=== PATIENT | male | born 1955 | race Caucasian/White ===

== ENCOUNTER 2016-12-02 06:38 | Emergency (ER) | payer OTHER ==
[~2016-12-02] VITALS: Ht 172.7 cm; Wt 77.0 kg
[2016-12-02] MEDS ORDERED: ACETAMINOPHEN WITH CODEINE 300/30MG TABLET PO ONE (07:45)
[2016-12-02 09:08] VITALS: BP 122/74
== END 2016-12-02 09:13 | disposition home or self-care (01) ==
LOC: ER 08:21
PROC: 2Y41X5Z Packing of Nasal Region using Packing Material (ICD-10-PCS; principal; 2016-12-02)
DX: R04.0 Epistaxis (principal); F31.9 Bipolar disorder, unspecified; F17.210 Nicotine dependence, cigarettes, uncomplicated
CPT/HCPCS: 30901; 99284

== ENCOUNTER 2024-08-29 13:14 | Inpatient (IN) | payer MEDICARE, OTHER ==
[~2024-08-29] VITALS: Ht 170.2 cm; Wt 53.5 kg
[~2024-08-29 13:14] MED LIST: FERR-63 PO; IBUP-2029 PO; INSLIS SUBCUT; LANTUSUD SUBCUT; PANT40SU PO
[2024-08-29] MEDS: MORPHINE SULFATE 2 MG/ML INJ (NOT FOR IM USE) IV ONE ×2 (13:48→15:01)
[2024-08-29 14:06] LABS: HEMATOCRIT 27.2 % (42.0-52.0); HEMOGLOBIN 9.1 g/dL (14.0-18.0); MEAN CORPUSCULAR HEMOGLOBIN 26.3 pg (28.0-32.0); MEAN CORPUSCULAR HGB CONC 33.5 g/dL (31.0-37.0); MEAN CORPUSCULAR VOLUME 78.5 fL (80.0-94.0); PLATELET 84 x1000/uL (130-400); RED BLOOD CELL COUNT 3.47 mill/uL (4.7-6.1); RED CELL DISTRIBUTION WIDTH 17.7 % (11.6-14.6); WHITE BLOOD COUNT 4.8 x1000/uL (4.5-11.0)
[2024-08-29 14:13] LABS: CHLORIDE 98 mEq/L (98-107); POTASSIUM 4.2 mEq/L (3.5-5.1)
[2024-08-29 14:14] LABS: CARBON DIOXIDE 25 mEq/L (21-32); SODIUM 132 mEq/L (136-145)
[2024-08-29 14:15] LABS: CALCIUM 8.9 mg/dL (8.7-10.4)
[2024-08-29 14:19] LABS: CREATININE 1.1 mg/dL (0.6-1.3)
[2024-08-29 14:20] LABS: UREA NITROGEN BLOOD 22 mg/dL (9-23)
[2024-08-29 14:23] LABS: INR 1.2; PARTIAL THROMBOPLASTIN TIME 30.5 sec (23.4-31.0); PROTHROMBIN TIME 13.1 sec (9.6-11.0)
[2024-08-29 14:33] LABS: GLUCOSE 327 mg/dL (70-105)
[2024-08-29] MEDS: INSULIN LISPRO 100 UNITS/ML SUBCUT NR (16:00)
[2024-08-29 18:13] VITALS: BP 129/73; PULSE 89; RESP 19; O2SAT 100
[2024-08-29] MEDS ORDERED: CLONIDINE 0.1MG TABLET PO PRN (18:15)
[2024-08-29] MEDS ORDERED: ONDANSETRON HCL 4MG/2ML INJ IV PRN (18:15)
[2024-08-29] MEDS ORDERED: ACETAMINOPHEN 325MG TABLET PO PRN (18:15)
[2024-08-29] MEDS ORDERED: DEXTROSE 50% WATER 50ML SYRINGE IV PRN (18:15)
[2024-08-29] MEDS ORDERED: DOCUSATE SODIUM 100MG CAPSULE PO PRN (18:15)
[2024-08-29] MEDS ORDERED: IPRATROPIUM/ALBUTEROL 0.5-3(2.5)MG/3ML NEB HHN PRN (18:33)
[2024-08-29 20:00] VITALS: BP 124/68; PULSE 91; RESP 19; TEMP 36.5; O2SAT 98
[2024-08-29] MEDS: BLOOD SUGAR DIAGNOSTIC STRIP TEST SCH (21:00)
[2024-08-29] MEDS: INSULIN LISPRO 100 UNITS/ML SUBCUT SCH (21:00)
[2024-08-30] VITALS: BP 119/68; PULSE 85; RESP 19; TEMP 36.5; O2SAT 98
[2024-08-30 04:00] VITALS: BP 120/68; PULSE 86; RESP 18; TEMP 36.7; O2SAT 96
[2024-08-30 07:18] LABS: BASOPHILS % 0.3 % (0.0-2.0); DIFFERENTIAL COMMENT 0; EOSINOPHILS % 0.2 % (0.0-5.0); HEMATOCRIT. 25.1 % (42.0-52.0); HEMOGLOBIN. 8.5 g/dL (14.0-18.0); MEAN CORPUSCULAR HEMOGLOBIN 26.5 pg (28.0-32.0); MEAN CORPUSCULAR VOLUME 77.8 fL (80.0-94.0); MEAN PLATELET VOLUME 6.6 fl (7.4-10.4); MONOCYTES % 10.2 % (2.0-8.0); NEUTROPHILS % 80.3 % (40.0-76.0); PLATELET 107 x1000/uL (130-400); RED BLOOD CELL COUNT 3.23 mill/uL (4.7-6.1); RED CELL DISTRIBUTION WIDTH 17.8 % (11.6-14.6); WHITE BLOOD COUNT 5.7 x1000/uL (4.5-11.0)
[2024-08-30 07:22] LABS: CHLORIDE 101 mEq/L (98-107); POTASSIUM 4.2 mEq/L (3.5-5.1); SODIUM 136 mEq/L (136-145)
[2024-08-30 07:23] LABS: CALCIUM 9.1 mg/dL (8.7-10.4); CARBON DIOXIDE 27 mEq/L (21-32)
[2024-08-30 07:28] LABS: CREATININE 0.9 mg/dL (0.6-1.3); GLUCOSE 235 mg/dL (70-105); UREA NITROGEN BLOOD 20 mg/dL (9-23)
[2024-08-30 07:30] LABS: ALANINE AMINOTRANSFERASE 29 IU/L (10-49); ALBUMIN 3.5 g/dL (3.2-4.8); ASPARTATE AMINOTRANSFERASE 28 IU/L (<34); BILIRUBIN TOTAL 1.5 mg/dL (0.1-1.0); PROTEIN TOTAL 7.1 g/dL (6.0-8.3)
[2024-08-30 08:00] VITALS: BP 115/63; PULSE 84; RESP 18; TEMP 36.3; O2SAT 97
[2024-08-30] MEDS: HYDROCODONE/ACETAMINOPHEN 10/325MG TABLET PO PRN (08:16)
[2024-08-30] MEDS: ENOXAPARIN 40MG/0.4ML SYR SUBCUT SCH (09:00)
[2024-08-30] MEDS: HYDROCODONE/ACETAMINOPHEN 5/325MG TABLET PO PRN (10:08)
[2024-08-30 12:00] VITALS: BP 110/63; PULSE 80; RESP 19; TEMP 36.3; O2SAT 97
[2024-08-30] MEDS: INSULIN LISPRO 100 UNITS/ML SUBCUT SCH (12:20)
[2024-08-30] MEDS: PANTOPRAZOLE 40MG DR TABLET PO SCH (12:27)
[2024-08-30 16:00] VITALS: BP 109/52; PULSE 79; RESP 18; TEMP 36.5; O2SAT 97
[2024-08-30] MEDS: MORPHINE SULFATE 2 MG/ML INJ (NOT FOR IM USE) IV PRN (16:11)
[2024-08-30 20:00] VITALS: BP 111/64; PULSE 88; RESP 18; TEMP 36.4; O2SAT 95
[2024-08-31] VITALS (15 sets, daily range): BP systolic 91–128; BP diastolic 44–71; PULSE 74–82; RESP 14–20; TEMP 36.114–36.89184; O2SAT 96–98
[2024-08-31] MEDS: INSULIN GLARGINE 100 UNITS/ML SUBCUT SCH (09:41)
[2024-08-31 11:56] LABS: BASOPHILS % 0.3 % (0.0-2.0); DIFFERENTIAL COMMENT 0; EOSINOPHILS % 0.5 % (0.0-5.0); HEMATOCRIT. 22.3 % (42.0-52.0); HEMOGLOBIN. 7.4 g/dL (14.0-18.0); LYMPHOCYTES % 9.7 % (20.0-50.0); MEAN CORPUSCULAR HEMOGLOBIN 26.2 pg (28.0-32.0); MEAN CORPUSCULAR VOLUME 79.3 fL (80.0-94.0); MEAN PLATELET VOLUME 6.6 fl (7.4-10.4); MONOCYTES % 12.3 % (2.0-8.0); NEUTROPHILS % 77.2 % (40.0-76.0); PLATELET 73 x1000/uL (130-400); RED BLOOD CELL COUNT 2.81 mill/uL (4.7-6.1); RED CELL DISTRIBUTION WIDTH 18.3 % (11.6-14.6); WHITE BLOOD COUNT 4.6 x1000/uL (4.5-11.0)
[2024-08-31 12:08] LABS: CALCIUM 8.2 mg/dL (8.7-10.4); CARBON DIOXIDE 27 mEq/L (21-32); CHLORIDE 99 mEq/L (98-107); POTASSIUM 4.3 mEq/L (3.5-5.1); SODIUM 132 mEq/L (136-145)
[2024-08-31 12:14] LABS: ALANINE AMINOTRANSFERASE 21 IU/L (10-49); CREATININE 0.9 mg/dL (0.6-1.3); GLUCOSE 241 mg/dL (70-105); UREA NITROGEN BLOOD 18 mg/dL (9-23)
[2024-08-31 12:15] LABS: ALBUMIN 3.2 g/dL (3.2-4.8); ASPARTATE AMINOTRANSFERASE 23 IU/L (<34)
[2024-08-31 12:16] LABS: BILIRUBIN TOTAL 1.4 mg/dL (0.1-1.0)
[2024-08-31 12:17] LABS: PROTEIN TOTAL 6.9 g/dL (6.0-8.3)
[2024-08-31 17:32] LABS: INR 1.2
[2024-08-31 17:49] LABS: HEPATITIS B SURFACE ANTIGEN NEGATIVE (Negative)
[2024-08-31 18:04] LABS: *AMPHETAMINES SCREEN URINE NEGATIVE (NEGATIVE); *BARBITURATES SCREEN URINE NEGATIVE (NEGATIVE); *BENZODIAZEPINES SCREEN URINE NEGATIVE (NEGATIVE); *COCAINE SCREEN URINE PRESUMPTIVE POSITIVE (NEGATIVE); CANNABINOID URINE SCREEN NEGATIVE (NEGATIVE); ECSTASY MDMA SCREEN URINE NEGATIVE (NEGATIVE); METHADONE URINE SCREEN NEGATIVE (NEGATIVE); OPIATES URINE SCREEN PRESUMPTIVE POSITIVE (NEGATIVE); PHENCYCLIDINE URINE SCREEN NEGATIVE (NEGATIVE)
[2024-08-31 18:09] LABS: HEPATITIS A AB IGM NEGATIVE (Negative)
[2024-08-31 18:11] LABS: HEPATITIS B CORE AB IGM NEGATIVE (Negative)
[2024-08-31 20:41] LABS: HEPATITIS C AB REACTIVE (Pos) (Negative)
[2024-09-01] VITALS (7 sets, daily range): BP systolic 103–130; BP diastolic 63–68; PULSE 73–80; RESP 16–20; TEMP 33.39156–37.2; O2SAT 95–100
[2024-09-01] MEDS ORDERED: VANCOMYCIN HCL 1GM VIAL ONE ×2 (06:30→10:39)
[2024-09-01] MEDS ORDERED: POLYMYXIN B SULFATE 500000 UNITS/VIAL ONE (06:30)
[2024-09-01] MEDS ORDERED: LIDOCAINE HCL/EPINEPHRINE 1%-EPI 1:100,000 20ML VIAL ONE ×2 (06:30→07:37)
[2024-09-01 06:45] LABS: CHLORIDE 102 mEq/L (98-107); POTASSIUM 4.1 mEq/L (3.5-5.1); SODIUM 134 mEq/L (136-145)
[2024-09-01 06:46] LABS: CARBON DIOXIDE 27 mEq/L (21-32)
[2024-09-01 06:47] LABS: CALCIUM 8.5 mg/dL (8.7-10.4)
[2024-09-01 06:51] LABS: CREATININE 0.7 mg/dL (0.6-1.3); GLUCOSE 182 mg/dL (70-105); UREA NITROGEN BLOOD 17 mg/dL (9-23)
[2024-09-01 06:53] LABS: INR 1.2; PARTIAL THROMBOPLASTIN TIME 30.6 sec (23.4-31.0)
[2024-09-01 06:58] LABS: BASOPHILS % 0.3 % (0.0-2.0); DIFFERENTIAL COMMENT 0; EOSINOPHILS % 0.9 % (0.0-5.0); HEMATOCRIT. 25.3 % (42.0-52.0); HEMOGLOBIN. 8.5 g/dL (14.0-18.0); LYMPHOCYTES % 9.2 % (20.0-50.0); MEAN CORPUSCULAR HEMOGLOBIN 26.4 pg (28.0-32.0); MEAN CORPUSCULAR HGB CONC 33.7 g/dL (31.0-37.0); MEAN CORPUSCULAR VOLUME 78.1 fL (80.0-94.0); MEAN PLATELET VOLUME 6.8 fl (7.4-10.4); MONOCYTES % 10.9 % (2.0-8.0); NEUTROPHILS % 78.7 % (40.0-76.0); PLATELET 65 x1000/uL (130-400); RED BLOOD CELL COUNT 3.24 mill/uL (4.7-6.1); RED CELL DISTRIBUTION WIDTH 17.5 % (11.6-14.6); WHITE BLOOD COUNT 3.8 x1000/uL (4.5-11.0)
[2024-09-01] MEDS ORDERED: TRANEXAMIC ACID 1000MG PREMIX 200 ML IV ONE (07:00)
[2024-09-01] MEDS ORDERED: LABETALOL 5MG/ML 4ML INJ IV PRN (07:30)
[2024-09-01] MEDS ORDERED: MEPERIDINE HCL/PF 25MG/ML CPJ IV PRN (07:30)
[2024-09-01] MEDS ORDERED: ONDANSETRON HCL 4MG/2ML INJ IV PRN ×2 (07:30→11:30)
[2024-09-01] MEDS ORDERED: DEXAMETHASONE 4MG/ML 1ML VIAL ONE (07:34)
[2024-09-01] MEDS ORDERED: SUCCINYLCHOLINE CHLORIDE 200MG/10ML IV ONE (07:34)
[2024-09-01] MEDS ORDERED: ONDANSETRON HCL 4MG/2ML INJ ONE (07:34)
[2024-09-01] MEDS ORDERED: CEFAZOLIN SODIUM 1000MG/VIAL ONE (07:34)
[2024-09-01] MEDS ORDERED: ROCURONIUM BROMIDE 10MG/ML VIAL 5ML IV ONE (07:35)
[2024-09-01] MEDS ORDERED: MIDAZOLAM HCL 2 MG/2 ML VIAL ONE (07:35)
[2024-09-01] MEDS ORDERED: FENTANYL CITRATE/PF 50MCG/ML 2ML VIAL ONE (07:35)
[2024-09-01] MEDS ORDERED: ETOMIDATE 2MG/ML 10ML VIAL IV ONE (07:36)
[2024-09-01] MEDS ORDERED: PROPOFOL 200MG/20ML VIAL IV ONE (07:36)
[2024-09-01] MEDS ORDERED: ALBUTEROL 6.7GM HFA INHALER ONE (07:58)
[2024-09-01] MEDS ORDERED: HYDROMORPHONE HCL/PF 2MG/ML INJ ONE ×2 (08:28→11:32)
[2024-09-01] MEDS ORDERED: ALBUMIN HUMAN 12.5G/250ML (5%) IV ONE (09:11)
[2024-09-01 09:47] LABS: BASOPHILS % 0.4 % (0.0-2.0); DIFFERENTIAL COMMENT 0; EOSINOPHILS % 0.8 % (0.0-5.0); HEMATOCRIT. 21.9 % (42.0-52.0); HEMOGLOBIN. 7.4 g/dL (14.0-18.0); LYMPHOCYTES % 7.8 % (20.0-50.0); MEAN CORPUSCULAR HEMOGLOBIN 26.8 pg (28.0-32.0); MEAN CORPUSCULAR HGB CONC 33.7 g/dL (31.0-37.0); MEAN CORPUSCULAR VOLUME 79.7 fL (80.0-94.0); MEAN PLATELET VOLUME 6.8 fl (7.4-10.4); MONOCYTES % 7.7 % (2.0-8.0); NEUTROPHILS % 83.3 % (40.0-76.0); PLATELET 85 x1000/uL (130-400); RED BLOOD CELL COUNT 2.74 mill/uL (4.7-6.1); RED CELL DISTRIBUTION WIDTH 17.8 % (11.6-14.6)
[2024-09-01] MEDS ORDERED: MORPHINE SULFATE/PF 1MG/ML 10ML AMP ONE (10:45)
[2024-09-01] MEDS ORDERED: ROPIVACAINE HCL 1% 20 ML VIAL EPI ONE (10:45)
[2024-09-01] MEDS ORDERED: EPINEPHRINE 1:1000 1 MG/ML AMP ONE (10:45)
[2024-09-01] MEDS ORDERED: KETOROLAC 30MG/ML VIAL ONE (10:45)
[2024-09-01] MEDS ORDERED: SKIN ADHESIVE 0.7 GM EA TOP ONE (11:02)
[2024-09-01] MEDS ORDERED: SUGAMMADEX SODIUM 200MG/2ML VIAL IV ONE (11:20)
[2024-09-01] MEDS: CEFAZOLIN 1000MG PREMIX 50 ML IV SCH ×2 (11:30→17:29)
[2024-09-01] MEDS ORDERED: NALOXONE HCL 0.4MG/ML VIAL IV PRN (11:45)
[2024-09-01 12:48] LABS: HEMATOCRIT. 29.4 % (42.0-52.0); HEMOGLOBIN. 9.9 g/dL (14.0-18.0); MEAN CORPUSCULAR HEMOGLOBIN 27.6 pg (28.0-32.0); MEAN CORPUSCULAR HGB CONC 33.7 g/dL (31.0-37.0); MEAN CORPUSCULAR VOLUME 81.7 fL (80.0-94.0); MEAN PLATELET VOLUME 6.6 fl (7.4-10.4); PLATELET 83 x1000/uL (130-400); RED BLOOD CELL COUNT 3.59 mill/uL (4.7-6.1); RED CELL DISTRIBUTION WIDTH 16.4 % (11.6-14.6); WHITE BLOOD COUNT 7.5 x1000/uL (4.5-11.0)
[2024-09-01 12:52] LABS: DIFFERENTIAL COMMENT 1
[2024-09-01] MEDS: METOCLOPRAMIDE HCL 10MG/2ML VIAL IV SCH (16:05)
[2024-09-01] MEDS: HYDROMORPHONE HCL/PF 1MG/ML INJ IV PRN (16:18)
[2024-09-01 18:10] LABS: ANISOCYTOSIS 1+; PLATELET ESTIMATE DECREASED
[2024-09-01] MEDS: SENNOSIDES/DOCUSATE SOD 8.6/50MG TABLET PO SCH (21:42)
[2024-09-02] VITALS: BP 133/70; PULSE 83; RESP 17; TEMP 36.9; O2SAT 97
[2024-09-02 04:00] VITALS: BP 133/70; PULSE 83; RESP 17; TEMP 36.9; O2SAT 97
[2024-09-02] MEDS: KETOROLAC 30MG/ML VIAL IV PRN (06:03)
[2024-09-02 07:47] LABS: HEMATOCRIT. 26.4 % (42.0-52.0); HEMOGLOBIN. 8.9 g/dL (14.0-18.0); MEAN CORPUSCULAR HEMOGLOBIN 27.2 pg (28.0-32.0); MEAN CORPUSCULAR HGB CONC 33.7 g/dL (31.0-37.0); MEAN CORPUSCULAR VOLUME 80.6 fL (80.0-94.0); MEAN PLATELET VOLUME 7.3 fl (7.4-10.4); PLATELET 130 x1000/uL (130-400); RED BLOOD CELL COUNT 3.28 mill/uL (4.7-6.1); RED CELL DISTRIBUTION WIDTH 17.1 % (11.6-14.6); WHITE BLOOD COUNT 8.9 x1000/uL (4.5-11.0)
[2024-09-02 07:51] LABS: CARBON DIOXIDE 24 mEq/L (21-32); CHLORIDE 102 mEq/L (98-107); POTASSIUM 4.4 mEq/L (3.5-5.1); SODIUM 135 mEq/L (136-145)
[2024-09-02 07:52] LABS: CALCIUM 7.8 mg/dL (8.7-10.4)
[2024-09-02 07:54] LABS: DIFFERENTIAL COMMENT 1
[2024-09-02 07:55] LABS: CREATININE 0.9 mg/dL (0.6-1.3)
[2024-09-02 07:57] LABS: GLUCOSE 248 mg/dL (70-105); UREA NITROGEN BLOOD 20 mg/dL (9-23)
[2024-09-02 08:00] VITALS: BP 124/67; PULSE 83; RESP 18; TEMP 36.6; O2SAT 98
[2024-09-02] MEDS: ENOXAPARIN 30MG/0.3ML SYR SUBCUT SCH (08:40)
[2024-09-02 15:07] LABS: ANISOCYTOSIS 1+; PLATELET ESTIMATE NORMAL
[2024-09-02 20:00] VITALS: BP 125/63; PULSE 95; RESP 20; TEMP 37; O2SAT 94
[2024-09-03] VITALS: BP 126/73; PULSE 90; RESP 20; TEMP 36.4; O2SAT 99
[2024-09-03] MEDS: HYDROCODONE/ACETAMINOPHEN 5/325MG TABLET PO PRN ×2 (01:01→12:20)
[2024-09-03 04:00] VITALS: BP 107/63; PULSE 79; RESP 20; TEMP 36.2; O2SAT 99
[2024-09-03 08:00] VITALS: BP 119/60; PULSE 74; RESP 20; TEMP 36.6; O2SAT 98
[2024-09-03 12:00] VITALS: BP 107/74; PULSE 88; RESP 20; TEMP 36.4; O2SAT 96
[2024-09-03 16:00] VITALS: BP 115/66; PULSE 84; RESP 19; TEMP 36.2; O2SAT 97
[2024-09-03 20:00] VITALS: BP 111/65; PULSE 79; RESP 19; TEMP 36.5; O2SAT 97
[2024-09-04 04:00] VITALS: BP 112/63; PULSE 83; RESP 19; TEMP 36.4; O2SAT 95
[2024-09-04 08:00] VITALS: BP 112/60; PULSE 77; RESP 19; TEMP 36; O2SAT 98
[2024-09-04 12:00] VITALS: BP 115/65; PULSE 76; RESP 18; TEMP 36.1; O2SAT 97
[2024-09-04 16:00] VITALS: BP 120/64; PULSE 78; RESP 17; TEMP 36.4; O2SAT 98
[2024-09-04 20:00] VITALS: BP 112/68; PULSE 84; RESP 19; TEMP 35.9; O2SAT 98
[2024-09-05] VITALS: BP 116/67; PULSE 78; RESP 20; TEMP 36; O2SAT 96
[2024-09-05 04:00] VITALS: BP 113/67; PULSE 97; RESP 19; TEMP 35.8; O2SAT 96
[2024-09-05 08:00] VITALS: BP 110/63; PULSE 76; RESP 16; TEMP 36.5; O2SAT 96
[2024-09-05 12:00] VITALS: BP 114/67; PULSE 83; RESP 18; TEMP 36.4; O2SAT 99
[2024-09-05 16:00] VITALS: BP 103/62; PULSE 75; RESP 17; TEMP 36.5; O2SAT 98
[2024-09-05 20:00] VITALS: BP 104/60; PULSE 81; RESP 18; TEMP 36.7; O2SAT 94
[2024-09-06] VITALS: BP 108/64; PULSE 76; RESP 18; TEMP 36.6; O2SAT 95
[2024-09-06 04:00] VITALS: BP 110/65; PULSE 74; RESP 19; TEMP 36.3; O2SAT 94
[2024-09-06 08:00] VITALS: BP 105/59; PULSE 74; RESP 20; TEMP 36.7; O2SAT 98
[2024-09-06 12:00] VITALS: BP 116/61; PULSE 83; RESP 19; TEMP 36.6; O2SAT 97
[2024-09-06 16:00] VITALS: BP 138/60; PULSE 82; RESP 19; TEMP 36.5; O2SAT 97
[2024-09-06] MEDS: ACETAMINOPHEN 325MG TABLET PO PRN (18:47)
[2024-09-06 20:00] VITALS: BP 111/68; PULSE 85; RESP 20; TEMP 35.7; O2SAT 95
[2024-09-07] VITALS: BP 118/71; PULSE 78; RESP 20; TEMP 36; O2SAT 95
[2024-09-07 08:00] VITALS: BP 112/67; PULSE 60; RESP 20; TEMP 36.8; O2SAT 95
[2024-09-07 12:00] VITALS: BP 113/66; PULSE 63; RESP 19; TEMP 36.4; O2SAT 98
[2024-09-07 16:00] VITALS: BP 113/66; PULSE 63; RESP 19; TEMP 36.6; O2SAT 98
[2024-09-07 20:00] VITALS: BP 115/68; PULSE 74; RESP 20; TEMP 36.3; O2SAT 96
[2024-09-08] VITALS (7 sets, daily range): BP systolic 106–147; BP diastolic 61–72; PULSE 71–96; RESP 18–20; TEMP 36.1–36.6; O2SAT 95–98
[2024-09-08] MEDS: INSULIN GLARGINE 100 UNITS/ML SUBCUT SCH (10:00)
[2024-09-09] VITALS: BP 113/65; PULSE 84; RESP 20; TEMP 36.1; O2SAT 99
[2024-09-09 04:00] VITALS: BP 113/71; PULSE 82; RESP 20; TEMP 36.5; O2SAT 95
[2024-09-09 06:55] LABS: CALCIUM 8.1 mg/dL (8.7-10.4); CHLORIDE 104 mEq/L (98-107); POTASSIUM 4.5 mEq/L (3.5-5.1); SODIUM 135 mEq/L (136-145)
[2024-09-09 06:56] LABS: CARBON DIOXIDE 24 mEq/L (21-32)
[2024-09-09 06:58] LABS: INR 1.2; PROTHROMBIN TIME 12.4 sec (9.6-11.0)
[2024-09-09 07:01] LABS: CREATININE 0.8 mg/dL (0.6-1.3); GLUCOSE 248 mg/dL (70-105); UREA NITROGEN BLOOD 18 mg/dL (9-23)
[2024-09-09 07:03] LABS: PHOSPHORUS 2.2 mg/dL (2.5-4.9)
[2024-09-09 07:19] LABS: BASOPHILS % 0.5 % (0.0-2.0); HEMATOCRIT. 23.2 % (42.0-52.0); HEMOGLOBIN. 7.6 g/dL (14.0-18.0); LYMPHOCYTES % 9.5 % (20.0-50.0); MEAN CORPUSCULAR VOLUME 81.9 fL (80.0-94.0); MEAN PLATELET VOLUME 7.1 fl (7.4-10.4); MONOCYTES % 12.8 % (2.0-8.0); NEUTROPHILS % 76.2 % (40.0-76.0); PLATELET 119 x1000/uL (130-400); RED BLOOD CELL COUNT 2.83 mill/uL (4.7-6.1); RED CELL DISTRIBUTION WIDTH 17.9 % (11.6-14.6); WHITE BLOOD COUNT 3.6 x1000/uL (4.5-11.0)
[2024-09-09 08:00] VITALS: BP 107/65; PULSE 78; RESP 18; TEMP 36.4; O2SAT 98
== END 2024-09-09 11:45 | DRG 466 ==
LOC: ER 13:14 → EDBEDREQ 15:23 → EDBEDREQTM 17:19 → EDBEDREQ 17:19 → 6EST 18:07
PROVIDERS: ADMIT Internal Medicine; ATTEND Internal Medicine
PROC: 0SRB0JZ Replacement of Left Hip Joint with Synthetic Substitute, Open Approach (ICD-10-PCS; principal; 2024-09-01)
PROC: 0SPB0JZ Removal of Synthetic Substitute from Left Hip Joint, Open Approach (ICD-10-PCS; 2024-09-01)
PROC: 30233R1 Transfusion of Nonautologous Platelets into Peripheral Vein, Percutaneous Approach (ICD-10-PCS; 2024-09-01)
PROC: 30233N1 Transfusion of Nonautologous Red Blood Cells into Peripheral Vein, Percutaneous Approach (ICD-10-PCS; 2024-09-01)
PROC: 0QSC04Z Reposition Left Lower Femur with Internal Fixation Device, Open Approach (ICD-10-PCS; 2024-09-01)
DX: T84.031A Mechanical loosening of internal left hip prosthetic joint, initial encounter (principal); G93.41 Metabolic encephalopathy; S79.092A Other physeal fracture of upper end of left femur, initial encounter for closed fracture; C22.9 Malignant neoplasm of liver, not specified as primary or secondary; Z59.00 Homelessness unspecified; M97.02XA Periprosthetic fracture around internal prosthetic left hip joint, initial encounter; E11.65 Type 2 diabetes mellitus with hyperglycemia; I10 Essential (primary) hypertension; Z96.642 Presence of left artificial hip joint; B19.20 Unspecified viral hepatitis C without hepatic coma; E11.42 Type 2 diabetes mellitus with diabetic polyneuropathy; E80.6 Other disorders of bilirubin metabolism; F20.9 Schizophrenia, unspecified; F31.9 Bipolar disorder, unspecified; D69.6 Thrombocytopenia, unspecified; D64.9 Anemia, unspecified; F14.10 Cocaine abuse, uncomplicated; Y83.8 Other surgical procedures as the cause of abnormal reaction of the patient, or of later complication, without mention of misadventure at the time of the procedure; Z53.20 Procedure and treatment not carried out because of patient's decision for unspecified reasons; Z85.05 Personal history of malignant neoplasm of liver; Z55.6 Problems related to health literacy; Z79.4 Long term (current) use of insulin; Z79.84 Long term (current) use of oral hypoglycemic drugs; Z87.891 Personal history of nicotine dependence; Y92.89 Other specified places as the place of occurrence of the external cause; Y93.89 Activity, other specified; Y99.8 Other external cause status; W05.0XXA Fall from non-moving wheelchair, initial encounter
CPT/HCPCS: 36415; 71045; 72170; 73502; 73503; 73552; 73560; 76000; 80048; 80053; 80305; 82962; 83036; 83735; 84100; 85025; 85027; 85384; 86705; 86709; 86850; 86900; 86920; 87070; 87075; 87076; 87340; 88300; 93005; 97116; 97162; 97530; 97535; 99285; A4606; J0330; J0690; J1100; J1171; J1650; J1815; J1885; J2004; J2250; J2270; J2274; J2405; J2704; J2765; J2795; J3010; J3370; J3490; J7030; P9016; P9034; P9041; C1713; C1769; C1776

== ENCOUNTER 2025-02-21 12:23 | Inpatient (IN) | payer MEDICARE ==
[~2025-02-21] VITALS: Ht 172.7 cm; Wt 60.8 kg
[~2025-02-21 12:23] MED LIST changes: -IBUP-2029 PO; -INSLIS SUBCUT; +METO25TA6 PO
[2025-02-21 12:28] VITALS: O2SAT 100
[2025-02-21 15:26] LABS: HEMATOCRIT. 34.5 % (42.0-52.0); HEMOGLOBIN. 11.0 g/dL (14.0-18.0); MEAN PLATELET VOLUME 6.1 fl (7.4-10.4); PLATELET 108 x1000/uL (130-400); RED BLOOD CELL COUNT 4.12 mill/uL (4.7-6.1); RED CELL DISTRIBUTION WIDTH 21.0 % (11.6-14.6)
[2025-02-21 15:45] LABS: CREATININE 0.7 mg/dL (0.6-1.3); UREA NITROGEN BLOOD 13 mg/dL (9-23)
[2025-02-21] MEDS: SODIUM CHLORIDE 0.9% 1,000 ML IV ONE (15:45)
[2025-02-21 15:47] LABS: ASPARTATE AMINOTRANSFERASE 33 IU/L (<34); BILIRUBIN TOTAL 2.4 mg/dL (0.1-1.0); PROTEIN TOTAL 7.3 g/dL (6.0-8.3)
[2025-02-21 16:06] LABS: LYMPHOCYTES % MANUAL 10.0 % (20.0-50.0); MONOCYTES % MANUAL 6.0 % (2.0-8.0); NEUTROPHILS % MANUAL 84.0 % (45.0-75.0); PLATELET ESTIMATE DECREASED
[2025-02-21] MEDS: VISCOUS LIDOCAINE 2% 15 ML UDC MM ONE (21:52)
[2025-02-21] MEDS ORDERED: LORAZEPAM 2MG/ML UD SYRINGE IV PRN (22:00)
[2025-02-21] MEDS ORDERED: CLONIDINE 0.1MG TABLET PO PRN (22:00)
[2025-02-21] MEDS ORDERED: ONDANSETRON HCL 4MG/2ML INJ IV PRN (22:00)
[2025-02-21] MEDS ORDERED: IPRATROPIUM/ALBUTEROL 0.5-3(2.5)MG/3ML NEB HHN PRN (22:00)
[2025-02-21] MEDS ORDERED: ACETAMINOPHEN 325MG TABLET PO PRN (22:00)
[2025-02-21] MEDS ORDERED: MAGNESIUM/ALUMINUM HYDROXIDE/SIMETHICONE 30ML UDC PO PRN (22:00)
[2025-02-21] MEDS ORDERED: DOCUSATE SODIUM 100MG CAPSULE PO PRN (22:00)
[2025-02-21] MEDS: LIDOCAINE 2% 6ML GLYDO MM NR (22:07)
[2025-02-21] MEDS ORDERED: DEXTROSE 50% WATER 50ML SYRINGE IV PRN (22:30)
[2025-02-21 22:34] LABS: CLARITY URINE CLEAR (CLEAR); COLOR URINE ORANGE (YELLOW); GLUCOSE URINE NEGATIVE (NEGATIVE); KETONES URINE NEGATIVE (NEGATIVE); LEUKOCYTE ESTERASE URINE TRACE (NEGATIVE); NITRITE URINE POSITIVE (NEGATIVE); OCCULT BLOOD URINE 1+ (NEGATIVE); PH URINE 6.0 (4.5-8.0); PROTEIN URINE TRACE (NEGATIVE); SPECIFIC GRAVITY URINE 1.021 (1.005-1.030); UROBILINOGEN URINE 2.0 E.U./dL (0.2-1.0)
[2025-02-21 22:38] LABS: *AMPHETAMINES SCREEN URINE NEGATIVE (NEGATIVE); *BARBITURATES SCREEN URINE NEGATIVE (NEGATIVE); *BENZODIAZEPINES SCREEN URINE NEGATIVE (NEGATIVE); *COCAINE SCREEN URINE NEGATIVE (NEGATIVE); METHADONE URINE SCREEN NEGATIVE (NEGATIVE); OPIATES URINE SCREEN NEGATIVE (NEGATIVE)
[2025-02-21 22:39] LABS: CANNABINOID URINE SCREEN NEGATIVE (NEGATIVE); ECSTASY MDMA SCREEN URINE NEGATIVE (NEGATIVE); PHENCYCLIDINE URINE SCREEN NEGATIVE (NEGATIVE)
[2025-02-21 22:40] VITALS: BP 111/72; PULSE 78; RESP 18; TEMP 36.1; O2SAT 97
[2025-02-21 22:55] LABS: BACTERIA URINE NONE SEEN; FINE GRANULAR CASTS URINE 0-5 /lpf; SQUAMOUS EPITHELIAL CELL URINE FEW /lpf (RARE/1+)
[2025-02-21] MEDS ORDERED: METOPROLOL TARTRATE 25MG TABLET PO SCH (23:00)
[2025-02-21] MEDS ORDERED: INFLUENZA VACCINE 05/PF 0.5 ML SYRINGE IM ONE (23:30)
[2025-02-21] MEDS ORDERED: PNEUMOCOCCAL 20-VAL CONJ-DIP CRM 0.5ML IM ONE (23:30)
[2025-02-22 02:06] VITALS: BP 111/72; PULSE 78; RESP 18; TEMP 36.5848
[2025-02-22 04:00] VITALS: BP 108/72; PULSE 76; RESP 19; TEMP 36.3; O2SAT 93
[2025-02-22] MEDS ORDERED: DEXTROSE 50% WATER 50ML SYRINGE IV PRN (04:45)
[2025-02-22] MEDS ORDERED: CEFTRIAXONE SODIUM 1G VIAL IM ONE (05:00)
[2025-02-22] MEDS: SODIUM CHLORIDE 0.45% 1,000 ML IV SCH (06:50)
[2025-02-22] MEDS: BLOOD SUGAR DIAGNOSTIC STRIP TEST SCH (07:14)
[2025-02-22 08:00] VITALS: BP 100/71; PULSE 81; RESP 18; TEMP 36.7; O2SAT 98
[2025-02-22 08:12] LABS: BASOPHILS % 0.6 % (0.0-2.0); EOSINOPHILS % 0.3 % (0.0-5.0); HEMATOCRIT. 31.2 % (42.0-52.0); HEMOGLOBIN. 10.2 g/dL (14.0-18.0); LYMPHOCYTES % 7.4 % (20.0-50.0); MEAN PLATELET VOLUME 6.4 fl (7.4-10.4); MONOCYTES % 11.9 % (2.0-8.0); NEUTROPHILS % 79.8 % (40.0-76.0); PLATELET 84 x1000/uL (130-400); RED BLOOD CELL COUNT 3.74 mill/uL (4.7-6.1); RED CELL DISTRIBUTION WIDTH 20.7 % (11.6-14.6)
[2025-02-22 08:20] LABS: CREATININE 0.6 mg/dL (0.6-1.3)
[2025-02-22 08:21] LABS: BILIRUBIN TOTAL 1.9 mg/dL (0.1-1.0); LDL CHOLESTEROL 91 mg/dL (5-100); T4 FREE 0.80 ng/dL (0.89-1.76); TRIGLYCERIDE 102 mg/dL (0-150); UREA NITROGEN BLOOD 10 mg/dL (9-23)
[2025-02-22 08:22] LABS: ASPARTATE AMINOTRANSFERASE 28 IU/L (<34); BILIRUBIN DIRECT 0.8 mg/dL (<=3.0); PROTEIN TOTAL 6.9 g/dL (6.0-8.3)
[2025-02-22 08:23] LABS: PHOSPHORUS 2.7 mg/dL (2.5-4.9)
[2025-02-22] MEDS: CARVEDILOL 3.125 MG TABLET PO SCH (09:00)
[2025-02-22] MEDS: FERROUS SULFATE 325MG TABLET PO SCH (09:18)
[2025-02-22] MEDS: THIAMINE HCL 100MG TABLET PO SCH (09:18)
[2025-02-22] MEDS: MULTIVITAMINS,THER W-MINERALS TABLET PO SCH (09:18)
[2025-02-22] MEDS: FOLIC ACID 1MG TABLET PO SCH (09:18)
[2025-02-22] MEDS: CEFTRIAXONE 1GM/50ML 50ML IV SCH (09:19)
[2025-02-22] MEDS: INSULIN LISPRO 100 UNITS/ML SUBCUT SCH (09:23)
[2025-02-22 12:00] VITALS: BP 112/62; PULSE 91; RESP 18; TEMP 35.3; O2SAT 98
[2025-02-22 16:00] VITALS: BP 110/65; PULSE 88; RESP 18; TEMP 35.8; O2SAT 98
[2025-02-22] MEDS: SPIRONOLACTONE 50MG TABLET PO SCH (18:16)
[2025-02-22] MEDS: FUROSEMIDE 20MG/2ML VIAL IVP SCH (18:16)
[2025-02-22 19:33] LABS: INR 1.3
[2025-02-22 19:37] LABS: FOLIC ACID (FOLATE) SERUM 6.97 ng/mL (>5.38); VITAMIN B12 SERUM 1057 pg/mL (211-911)
[2025-02-22 20:24] LABS: HEPATITIS C AB REACTIVE (Pos) (Negative)
[2025-02-23] VITALS: BP 99/65; PULSE 78; RESP 20; TEMP 36.4; O2SAT 95
[2025-02-23 04:00] VITALS: BP 101/69; PULSE 76; RESP 18; TEMP 36.3; O2SAT 98
[2025-02-23 06:39] LABS: INR 1.3
[2025-02-23 06:53] LABS: CREATININE 0.8 mg/dL (0.6-1.3); UREA NITROGEN BLOOD 13 mg/dL (9-23)
[2025-02-23 06:55] LABS: PHOSPHORUS 2.8 mg/dL (2.5-4.9)
[2025-02-23 08:00] VITALS: BP 113/89; PULSE 89; RESP 16; TEMP 35; O2SAT 100
[2025-02-23 12:00] VITALS: BP 100/75; PULSE 63; RESP 16; TEMP 37.4; O2SAT 100
[2025-02-23 12:04] LABS: BASOPHILS % 0.6 % (0.0-2.0); EOSINOPHILS % 0.3 % (0.0-5.0); LYMPHOCYTES % 9.2 % (20.0-50.0); MEAN PLATELET VOLUME 6.6 fl (7.4-10.4); MONOCYTES % 10.0 % (2.0-8.0); NEUTROPHILS % 79.9 % (40.0-76.0); PLATELET 125 x1000/uL (130-400); RED BLOOD CELL COUNT 4.41 mill/uL (4.7-6.1); RED CELL DISTRIBUTION WIDTH 19.9 % (11.6-14.6)
[2025-02-23 12:08] LABS: HEMATOCRIT. 35.9 % (42.0-52.0); HEMOGLOBIN. 11.9 g/dL (14.0-18.0)
[2025-02-23 16:00] VITALS: BP 99/71; PULSE 81; RESP 18; TEMP 37.4; O2SAT 100
[2025-02-23 17:24] LABS: ASPARTATE AMINOTRANSFERASE 34 IU/L (<34); BILIRUBIN DIRECT 0.7 mg/dL (<=3.0); BILIRUBIN TOTAL 1.4 mg/dL (0.1-1.0); PROTEIN TOTAL 7.1 g/dL (6.0-8.3)
[2025-02-23] MEDS ORDERED: DEXTROSE 50% WATER 50ML SYRINGE IV PRN (19:00)
[2025-02-23 20:00] VITALS: BP 109/74; PULSE 86; RESP 16; TEMP 36.8; O2SAT 95
[2025-02-23] MEDS: BLOOD SUGAR DIAGNOSTIC STRIP TEST SCH (21:00)
[2025-02-23] MEDS: INSULIN LISPRO 100 UNITS/ML SUBCUT SCH (21:49)
[2025-02-24] VITALS: BP 101/72; PULSE 70; RESP 17; TEMP 36.6; O2SAT 95
[2025-02-24 04:00] VITALS: BP 100/71; PULSE 75; RESP 17; TEMP 36.6; O2SAT 96
[2025-02-24 06:54] LABS: BASOPHILS % 0.7 % (0.0-2.0); EOSINOPHILS % 0.6 % (0.0-5.0); HEMATOCRIT. 31.0 % (42.0-52.0); HEMOGLOBIN. 10.5 g/dL (14.0-18.0); LYMPHOCYTES % 7.7 % (20.0-50.0); MEAN PLATELET VOLUME 6.5 fl (7.4-10.4); MONOCYTES % 11.0 % (2.0-8.0); NEUTROPHILS % 80.0 % (40.0-76.0); PLATELET 122 x1000/uL (130-400); RED BLOOD CELL COUNT 3.87 mill/uL (4.7-6.1); RED CELL DISTRIBUTION WIDTH 20.5 % (11.6-14.6)
[2025-02-24 06:56] LABS: INR 1.3
[2025-02-24 07:05] LABS: CREATININE 0.7 mg/dL (0.6-1.3)
[2025-02-24 07:06] LABS: UREA NITROGEN BLOOD 14 mg/dL (9-23)
[2025-02-24 07:08] LABS: BILIRUBIN TOTAL 1.4 mg/dL (0.1-1.0)
[2025-02-24 08:00] VITALS: BP 102/70; PULSE 80; RESP 15; TEMP 36.4; O2SAT 99
[2025-02-24] MEDS: PANTOPRAZOLE SODIUM 40 MG/VIAL IV SCH (09:46)
[2025-02-24 12:00] VITALS: BP 102/69; PULSE 94; RESP 20; TEMP 36.2; O2SAT 97
[2025-02-24] MEDS: SODIUM BICARBONATE 4.2% 2.5MEQ/5ML VIAL IV ONE (15:19)
[2025-02-24] MEDS: LIDOCAINE HCL 1% 10 MG/ML 10ML VIAL ONE (15:19)
[2025-02-24 16:00] VITALS: BP 91/60; PULSE 77; RESP 15; TEMP 36.4; O2SAT 96
[2025-02-24 17:29] LABS: BODY FLUID MONOCYTES 30 %; BODY FLUID RBC 35 /cu mm (0-2000); BODY FLUID WBC 22 /cu mm (0-200)
[2025-02-24 20:00] VITALS: BP 94/63; PULSE 71; RESP 17; TEMP 36.6; O2SAT 98
[2025-02-25] VITALS: BP 99/69; PULSE 79; RESP 17; TEMP 36.2; O2SAT 98
[2025-02-25 04:00] VITALS: BP 105/72; PULSE 82; RESP 17; TEMP 36.4; O2SAT 98
[2025-02-25] MEDS: TAMSULOSIN HCL 0.4MG SR CAPSULE PO NR (05:31)
[2025-02-25 06:48] LABS: CREATININE 0.9 mg/dL (0.6-1.3)
[2025-02-25 06:49] LABS: UREA NITROGEN BLOOD 13 mg/dL (9-23)
[2025-02-25 06:50] LABS: ASPARTATE AMINOTRANSFERASE 42 IU/L (<34)
[2025-02-25 06:51] LABS: BILIRUBIN DIRECT 0.7 mg/dL (<=3.0); BILIRUBIN TOTAL 1.5 mg/dL (0.1-1.0); PROTEIN TOTAL 7.3 g/dL (6.0-8.3)
[2025-02-25 08:00] VITALS: BP 114/60; PULSE 86; RESP 18; TEMP 36.7; O2SAT 98
[2025-02-25] MEDS: INSULIN GLARGINE 100 UNITS/ML SUBCUT SCH (09:47)
[2025-02-25 11:28] LABS: HEMATOCRIT. 33.7 % (42.0-52.0); HEMOGLOBIN. 11.5 g/dL (14.0-18.0); MEAN PLATELET VOLUME 6.3 fl (7.4-10.4); PLATELET 132 x1000/uL (130-400); RED BLOOD CELL COUNT 4.20 mill/uL (4.7-6.1); RED CELL DISTRIBUTION WIDTH 20.1 % (11.6-14.6)
[2025-02-25 12:00] VITALS: BP 101/64; PULSE 80; RESP 18; TEMP 36.6; O2SAT 98
[2025-02-25] MEDS ORDERED: NALOXONE HCL 0.4MG/ML VIAL IV PRN (16:00)
[2025-02-25] MEDS: MORPHINE SULFATE 10 MG/ML INJ (NOT FOR IM USE) IV PRN (17:40)
[2025-02-25 18:32] LABS: LYMPHOCYTES % MANUAL 3.0 % (20.0-50.0); MONOCYTES % MANUAL 11.0 % (2.0-8.0); NEUTROPHILS % MANUAL 86.0 % (45.0-75.0); PLATELET ESTIMATE NORMAL
[2025-02-25 20:00] VITALS: BP 95/65; PULSE 58; RESP 18; TEMP 36.3; O2SAT 98
[2025-02-25] MEDS: MIRTAZAPINE 15MG TABLET PO SCH (21:02)
[2025-02-25] MEDS: ACETAMINOPHEN 325MG TABLET PO PRN (21:02)
[2025-02-26] VITALS (8 sets, daily range): BP systolic 90–101; BP diastolic 57–71; PULSE 62–85; RESP 16–20; TEMP 35.8–36.6; O2SAT 95–100
[2025-02-26 10:36] LABS: BASOPHILS % 1.0 % (0.0-2.0); EOSINOPHILS % 0.8 % (0.0-5.0); HEMATOCRIT. 34.6 % (42.0-52.0); HEMOGLOBIN. 11.6 g/dL (14.0-18.0); LYMPHOCYTES % 8.7 % (20.0-50.0); MEAN PLATELET VOLUME 6.4 fl (7.4-10.4); MONOCYTES % 9.9 % (2.0-8.0); NEUTROPHILS % 79.6 % (40.0-76.0); PLATELET 118 x1000/uL (130-400); RED BLOOD CELL COUNT 4.31 mill/uL (4.7-6.1); RED CELL DISTRIBUTION WIDTH 20.0 % (11.6-14.6)
[2025-02-26 11:04] LABS: CREATININE 0.8 mg/dL (0.6-1.3)
[2025-02-26 11:05] LABS: UREA NITROGEN BLOOD 16 mg/dL (9-23)
[2025-03-01 06:19] LABS: ALPHA FETOPROTEIN TUMOR MARKER 3240.0 ng/mL (0.0-8.4); CARCINOEMBRYONIC AG - SEND OUT 2.8 ng/mL (0.0-4.7)
== END 2025-02-26 22:25 | DRG 432 ==
LOC: ER 12:23 → 8EST 19:47 → EDBEDREQ 19:59 → EDBEDREQTM 19:59 → ENRESERV 21:27
PROVIDERS: ADMIT Internal Medicine; ATTEND Internal Medicine
PROC: 0W9G3ZZ Drainage of Peritoneal Cavity, Percutaneous Approach (ICD-10-PCS; principal; 2025-02-24)
DX: K74.69 Other cirrhosis of liver (principal); L89.153 Pressure ulcer of sacral region, stage 3; D68.4 Acquired coagulation factor deficiency; K76.6 Portal hypertension; N39.0 Urinary tract infection, site not specified; R18.8 Other ascites; R62.7 Adult failure to thrive; B19.20 Unspecified viral hepatitis C without hepatic coma; D50.9 Iron deficiency anemia, unspecified; D69.59 Other secondary thrombocytopenia; E88.09 Other disorders of plasma-protein metabolism, not elsewhere classified; I12.9 Hypertensive chronic kidney disease with stage 1 through stage 4 chronic kidney disease, or unspecified chronic kidney disease; K80.20 Calculus of gallbladder without cholecystitis without obstruction; N18.9 Chronic kidney disease, unspecified; E11.22 Type 2 diabetes mellitus with diabetic chronic kidney disease; N40.0 Benign prostatic hyperplasia without lower urinary tract symptoms; S80.12XA Contusion of left lower leg, initial encounter; S80.11XA Contusion of right lower leg, initial encounter; X58.XXXA Exposure to other specified factors, initial encounter; R16.1 Splenomegaly, not elsewhere classified; K21.9 Gastro-esophageal reflux disease without esophagitis; F14.10 Cocaine abuse, uncomplicated; F20.9 Schizophrenia, unspecified; F31.9 Bipolar disorder, unspecified; J44.9 Chronic obstructive pulmonary disease, unspecified; Z79.4 Long term (current) use of insulin; Z79.899 Other long term (current) drug therapy; Z85.05 Personal history of malignant neoplasm of liver; Z87.891 Personal history of nicotine dependence; Z99.81 Dependence on supplemental oxygen; Y93.89 Activity, other specified; Y92.89 Other specified places as the place of occurrence of the external cause
CPT/HCPCS: 36415; 49083; 71045; 74176; 76700; 76770; 80048; 80053; 80061; 80076; 80305; 81003; 82040; 82105; 82140; 82247; 82306; 82378; 82607; 82746; 82962; 83036; 83605; 83615; 83735; 84100; 84145; 84439; 84443; 84481; 85025; 85379; 86705; 87340; 88108; 93970; 96360; 96361; 97162; 97166; 99285; A4606; J0696; J1815; J1938; J2003; J2270; J2470; J3490; J7030